=== PATIENT | female | born 1990 | race Caucasian/White ===

== ENCOUNTER 2020-04-22 12:34 | Outpatient (CLI) | payer OTHER ==
[~2020-04-22 12:34] MED LIST: COLACE 100MG C100 MG PO
== END 2020-04-22 14:13 | disposition home or self-care (01) ==
LOC: GENOP 12:34
DX: O36.8130 Decreased fetal movements, third trimester, not applicable or unspecified (principal)
CPT/HCPCS: 59025

== ENCOUNTER 2020-05-19 10:20 | Inpatient (IN) | payer OTHER ==
[~2020-05-19] VITALS: Ht 167.6 cm; Wt 86.6 kg
[2020-05-19] MEDS ORDERED: IBUPROFEN600 MG PO (11:29)
[2020-05-19] MEDS ORDERED: DOCUSATE SODIU250 MG PO (11:29)
[2020-05-19] MEDS ORDERED: FEROSUL325 MG PO (11:29)
[2020-05-19 11:30] LABS: HEMOGLOBIN 13.4 gm/dl (12.3-15.3); RED BLOOD COUNT 4.85 M/UL (4.00-5.10); WHITE BLOOD COUNT 11.6 K/UL (4.5-11.0)
[2020-05-19] MEDS ORDERED: PRENATA CHEWAB1 EACH PO (12:32)
[2020-05-19 16:08] LABS: HEMOGLOBIN 13.2 gm/dl (12.3-15.3)
[2020-05-20 06:08] LABS: HEMOGLOBIN 12.1 gm/dl (12.3-15.3)
== END 2020-05-20 15:31 | disposition home or self-care (01) | DRG 807 ==
LOC: GENOP 10:20 → OB 10:53
PROVIDERS: ADMIT Obstetrics & Gynecology
PROC: 10E0XZZ Delivery of Products of Conception, External Approach (ICD-10-PCS; principal; 2020-05-19)
PROC: 4A1HXCZ Monitoring of Products of Conception, Cardiac Rate, External Approach (ICD-10-PCS; 2020-05-19)
DX: O24.420 Gestational diabetes mellitus in childbirth, diet controlled (principal); Z37.0 Single live birth; Z3A.38 38 weeks gestation of pregnancy; Z20.822 Contact with and (suspected) exposure to COVID-19
CPT/HCPCS: 36415; 81001; 82962; 85014; 85018; 85025; 90715; J0595; J2590; U0002